=== PATIENT | female | born 1980 ===

== ENCOUNTER 2020-09-01 06:29 | Emergency (ER) | payer MEDICAID ==
[~2020-09-01] VITALS: Ht 170.2 cm; Wt 69.1 kg
--- NOTE | 2020-09-01 06:44 | NUR ---
INITIAL PT CONTACT. PT PRESENTS TO ED C/O SOB. "I AM HAVING AN ASTHMA ATTACK, I JUST GOT TO TOWN FROM [place] AND FORGOT MY INHALER." PT SITTING UPRIGHT ON GURNEY, PT SPEAKING IN 2-4 WORD SENTENCES, AUDIBLE WHEEZING. PT SITTING UPRIGHT ON GURNEY, PLACED ON CONTINUOUS MONITORING. CALL LIGHT AND PERSONAL BELONGINGS WITHIN REACH. AWAITING ERP.
--- NOTE | 2020-09-01 06:55 | NUR ---
BEDSIDE REPORT TO HEATHER CHATMAN
--- NOTE | 2020-09-01 06:59 | NUR ---
ERP AT BEDSIDE
[2020-09-01] MEDS ORDERED: ALBUTEROL/IPRATROPIUM 2.5MG/0.5MG, 3 ML NPPB ONE (07:30)
[2020-09-01] MEDS ORDERED: ALBUTEROL/IPRATROPIUM 2.5MG/0.5MG, 3 ML ONE (07:36)
[2020-09-01 07:40] VITALS: BP 115/73
--- NOTE | 2020-09-01 07:41 | NUR ---
ASSUMING CARE OF PATIENT AFTER REPORT FROM ANSLEY CHATMAN. PT RECIVING BREATHING TREATMENT AND MEDICATED PER EMAR. VSS. WARREN.
== END 2020-09-01 08:16 | disposition home or self-care (01) ==
LOC: ED 08:10
DX: J45.31 Mild persistent asthma with (acute) exacerbation (principal)
CPT/HCPCS: 94640; 99283; J7512